=== PATIENT | male | born 1985 ===

== ENCOUNTER 2023-04-28 07:30 | Day surgery (SDC) | payer OTHER ==
[~2023-04-28 07:30] MED LIST: PROPECIA1 MG PO; ULTRACET PO
[2023-04-28] MEDS ORDERED: COLACE100 MG PO (12:42)
[2023-04-28] MEDS ORDERED: TRAM1TAB98 PO (12:42)
== END 2023-04-28 16:05 | disposition home or self-care (01) ==
LOC: CIR.AMB 07:30
PROVIDERS: ATTEND Surgery
DX: K62.82 Dysplasia of anus (principal); D12.9 Benign neoplasm of anus and anal canal; K62.0 Anal polyp; K62.89 Other specified diseases of anus and rectum; Z20.822 Contact with and (suspected) exposure to COVID-19